=== PATIENT | male | born 1990 | race African-American/Black ===

== ENCOUNTER 2024-02-12 06:56 | Emergency (ER) | payer SELFPAY ==
[~2024-02-12] VITALS: Ht 185.4 cm; Wt 102.0 kg
[2024-02-12 07:33] LABS: CHLORIDE 109 mEq/L (98-107); POTASSIUM 3.8 mEq/L (3.5-5.1); SODIUM 139 mEq/L (136-145)
[2024-02-12 07:34] LABS: CARBON DIOXIDE 25 mEq/L (21-32)
[2024-02-12 07:35] LABS: CALCIUM 9.4 mg/dL (8.7-10.4)
[2024-02-12 07:39] LABS: GLUCOSE 84 mg/dL (70-105); UREA NITROGEN BLOOD 12 mg/dL (9-23)
[2024-02-12 07:44] LABS: BASOPHILS % 0.6 % (0.0-2.0); EOSINOPHILS % 5.3 % (0.0-5.0); HEMATOCRIT. 44.4 % (42.0-52.0); HEMOGLOBIN. 14.6 g/dL (14.0-18.0); LYMPHOCYTES % 17.1 % (20.0-50.0); MEAN CORPUSCULAR HEMOGLOBIN 28.8 pg (28.0-32.0); MEAN CORPUSCULAR HGB CONC 32.8 g/dL (31.0-37.0); MEAN CORPUSCULAR VOLUME 87.9 fL (80.0-94.0); MEAN PLATELET VOLUME 9.9 fl (7.4-10.4); MONOCYTES % 11.9 % (2.0-8.0); NEUTROPHILS % 65.1 % (40.0-76.0); PLATELET 209 x1000/uL (130-400); RED BLOOD CELL COUNT 5.06 mill/uL (4.7-6.1); RED CELL DISTRIBUTION WIDTH 14.6 % (11.6-14.6); WHITE BLOOD COUNT 11.7 x1000/uL (4.5-11.0)
[2024-02-12 08:50] VITALS: PULSE 77; RESP 20; O2SAT 98
[2024-02-12] MEDS: IPRATROPIUM BROMIDE (0.02%) 0.5MG/2.5ML NEB HHN STA (08:51)
[2024-02-12] MEDS: ALBUTEROL (0.083%) 2.5MG/3ML NEB HHN STA (08:51)
[2024-02-12] MEDS ORDERED: ALBU6.7H15 INH (10:37)
[2024-02-12] MEDS ORDERED: ALBU2.5V13 NEB (10:49)
[2024-02-12 11:01] VITALS: BP 138/88; PULSE 90; RESP 20; TEMP 98.4
== END 2024-02-12 11:02 | disposition home or self-care (01) ==
LOC: ER 06:56
DX: R06.02 Shortness of breath (principal); J45.909 Unspecified asthma, uncomplicated
CPT/HCPCS: 80048; 85025; 36415; 94644; 99285; Z7610 ×3; 94640